=== PATIENT | male | born 1960 | race Caucasian/White ===

== ENCOUNTER 2017-11-26 12:13 | Emergency (ER) | payer OTHER ==
[2017-11-26] MEDS: NS 1,000 ML IV ×2 (13:12)
[2017-11-26] MEDS: MORPHINE 4 MG/ML 1ML VIAL IV (13:12)
[2017-11-26] MEDS: ONDANSETRON 4MG/2ML VIAL (J2405) IV ×2 (13:12)
[2017-11-26] MEDS: MORPHINE 4 MG/ML 1ML VIAL (J2270) IV (13:12)
[2017-11-26 13:43] LABS: BASO # 0.1 10^3/uL (0.0-0.2); BASO % 0.5 % (0.0-1.0); EOS # 0.1 10^3/uL (0.0-0.50); EOS % 0.9 % (0.0-3.0); HEMATOCRIT 45.4 % (42.0-52.0); HEMOGLOBIN 15.3 g/dl (14.0-18.0); IMMATURE GRANULOCYTE # 0.1 10^3/uL (0-0); IMMATURE GRANULOCYTE % 0.4 % (0-0); LYMPH # 1.7 10^3/uL (1.5-4.5); MEAN CORPUSCULAR HEMOGLOBIN 30.6 pg (27.0-33.0); MEAN CORPUSCULAR HGB CONC 33.7 g/dl (32.0-36.5); MEAN CORPUSCULAR VOLUME 90.8 fl (80.0-96.0); MONO # 1.1 10^3/uL (0.0-0.8); MONO % 7.8 % (0.0-5.0); NEUTROPHILS % 78.4 % (36.0-66.0); PLATELET COUNT, AUTOMATED 234 10^3/uL (150-450); RED CELL DISTRIBUTION WIDTH 13.2 % (11.5-14.5)
[2017-11-26 13:49] LABS: AMORPHOUS SEDIMENT RFX SMALL (NEGATIVE); KETONE, URINE AUTO RFX TRACE mg/dL (NEGATIVE); LEUKOCYTE ESTERASE UR AUTO RFX NEGATIVE (NEGATIVE); MUCUS, URINE RFX LARGE (NEGATIVE); NITRITE, URINE AUTO RFX NEGATIVE (NEGATIVE); RBC, URINE AUTO RFX 4 /HPF (0-3); SPECIFIC GRAVITY UR AUTO RFX 1.029 (1.002-1.035); SQUAM EPITHELIAL CELL UR AURFX 0 /HPF (0-6); WBC, URINE AUTO RFX 1 /HPF (0-3)
[2017-11-26 13:57] LABS: INR 1.02; PROTHROMBIN TIME 13.5 SECONDS (12.4-14.5)
[2017-11-26 13:58] LABS: PARTIAL THROMBOPLASTIN TIME 32.2 SECONDS (26.8-37.9)
[2017-11-26 14:07] LABS: ALBUMIN 3.8 GM/DL (3.2-5.2); ALBUMIN/GLOBULIN RATIO 0.97 (1.00-1.93); ALKALINE PHOSPHATASE 88 U/L (45-117); ALT/SGPT 24 U/L (12-78); AMYLASE 31 U/L (25-115); ANION GAP 7 MEQ/L (8-16); AST/SGOT 27 U/L (7-37); BILIRUBIN,DIRECT 0.2 MG/DL (0.0-0.2); BILIRUBIN,TOTAL 0.8 MG/DL (0.2-1.0); BLOOD UREA NITROGEN 35 MG/DL (7-18); CALCIUM LEVEL 8.9 MG/DL (8.5-10.1); CARBON DIOXIDE LEVEL 28 MEQ/L (21-32); CHLORIDE LEVEL 102 MEQ/L (98-107); CREATININE FOR GFR 1.17 MG/DL (0.70-1.30); GLOMERULAR FILTRATION RATE > 60.0 (>56); GLUCOSE, FASTING 105 MG/DL (70-100); LIPASE 98 U/L (73-393); POTASSIUM SERUM 3.9 MEQ/L (3.5-5.1); SODIUM LEVEL 137 MEQ/L (136-145); TOTAL PROTEIN 7.7 GM/DL (6.4-8.2)
[2017-11-26] MEDS: CIPROFLOXACIN 500 MG TAB PO ×2 (15:06)
[2017-11-26] MEDS: metroNIDAZOLE (FLAGYL) 500 MG TAB PO ×2 (15:06)
[2017-11-26] MEDS: NORCO, ANEXSIA 5/325MG TABLET (HYDROcodone/ACETAMINOPHEN) PO ×2 (15:07)
== END 2017-11-26 15:14 | disposition home or self-care (01) ==
LOC: M ED 12:13
DX: K80.50 Calculus of bile duct without cholangitis or cholecystitis without obstruction (principal); E86.0 Dehydration; R10.11 Right upper quadrant pain; R10.31 Right lower quadrant pain; I10 Essential (primary) hypertension; I25.10 Atherosclerotic heart disease of native coronary artery without angina pectoris; Z85.038 Personal history of other malignant neoplasm of large intestine; Z90.49 Acquired absence of other specified parts of digestive tract; Z95.5 Presence of coronary angioplasty implant and graft; Z79.899 Other long term (current) drug therapy
CPT/HCPCS: J2270; J2405

== ENCOUNTER 2017-12-23 07:46 | Day surgery (SDC) | payer OTHER ==
[2017-12-23] MEDS ORDERED: LR 1,000 ML IV (08:00)
[2017-12-23] MEDS ORDERED: ASPIRIN 81 MG CHEW TABLET PO (09:30)
[2017-12-23] MEDS ORDERED: CEFAZOLIN 100MG/ML SYRINGE 1GM(J0690 PER 500MG) As Ordered (09:36)
[2017-12-23] MEDS: CEFAZOLIN SOD 1 GM in APPROPRIATE DILUENT 1 EA IV (10:15)
[2017-12-23] MEDS ORDERED: KETOROLAC 60 MG/2 ML VIAL (J1885) As Ordered (10:34)
[2017-12-23] MEDS ORDERED: NEOSTIGMINE 10 MG/10 ML VIAL (J2710) As Ordered (10:34)
[2017-12-23] MEDS ORDERED: ONDANSETRON 4MG/2ML VIAL (J2405) As Ordered (10:34)
[2017-12-23] MEDS ORDERED: METOCLOPRAMIDE INJ 10MG/2ML VIAL (J2765) As Ordered (10:34)
[2017-12-23] MEDS ORDERED: MIDAZOLAM INJ 2 MG/2 ML VIAL (J2250) As Ordered (10:34)
[2017-12-23] MEDS ORDERED: PROPOFOL 200 MG/20 ML VIAL As Ordered (10:34)
[2017-12-23] MEDS ORDERED: LIDOCAINE 2% INJ 100 MG/5 ML SDV (FOR ANES.) As Ordered (10:34)
[2017-12-23] MEDS ORDERED: ROCURONIUM BROMIDE 50 MG/5 ML VIAL As Ordered ×2 (10:34→10:35)
[2017-12-23] MEDS ORDERED: fentaNYL 250 MCG/5 ML INJECTION (J3010) As Ordered (10:34)
[2017-12-23] MEDS ORDERED: GLYCOPYRROLATE INJ 0.2 MG/ML 2 ML VIAL As Ordered (10:34)
[2017-12-23] MEDS: LIDOCAINE W/EPINEPHRINE 1% 20ML VIAL As Ordered (10:49)
[2017-12-23] MEDS: BUPIVACAINE HCL 0.5% 10 ML VIAL As Ordered (10:50)
[2017-12-23] MEDS ORDERED: ePHEDrine INJ 50 MG/ML VIAL As Ordered (11:02)
[2017-12-23] MEDS ORDERED: fentaNYL 100 MCG/2 ML INJECTION (J3010) As Ordered ×2 (12:04→13:06)
[2017-12-23] MEDS ORDERED: DESFLURANE 240 ML INHALANT As Ordered (12:22)
[2017-12-23] MEDS: fentaNYL 100 MCG/2 ML INJECTION (J3010) IV ×4 (13:16→13:34)
[2017-12-23] MEDS ORDERED: MORPHINE 4 MG/ML 1ML VIAL (J2270) IV (13:30)
[2017-12-23] MEDS ORDERED: ONDANSETRON 4MG/2ML VIAL (J2405) IV (13:30)
[2017-12-23] MEDS ORDERED: NORCO, ANEXSIA 5/325MG TABLET (HYDROcodone/ACETAMINOPHEN) PO (13:30)
[2017-12-23] MEDS ORDERED: PERCOCET 5MG/325MG TAB As Ordered (13:38)
[2017-12-23] MEDS: PERCOCET 5MG/325MG TAB PO (13:44)
[2017-12-23] MEDS ORDERED: KETOROLAC 30 MG/ML VIAL (J1885) As Ordered (14:11)
[2017-12-23] MEDS ORDERED: LABETALOL HCL 100 MG/20 ML VIAL As Ordered (14:11)
[2017-12-23] MEDS: KETOROLAC 30 MG/ML VIAL (J1885) IV (14:19)
[2017-12-23] MEDS: LABETALOL HCL 100 MG/20 ML VIAL IV ×5 (14:20→14:42)
[2017-12-24] MEDS ORDERED: LR 1,000 ML IV (13:30)
[2017-12-24] MEDS ORDERED: ONDANSETRON 4MG/2ML VIAL (J2405) IV (13:30)
== END 2017-12-23 16:08 | disposition home or self-care (01) ==
LOC: M SDC 07:46
DX: K80.00 Calculus of gallbladder with acute cholecystitis without obstruction (principal); K66.0 Peritoneal adhesions (postprocedural) (postinfection); I11.9 Hypertensive heart disease without heart failure; I25.10 Atherosclerotic heart disease of native coronary artery without angina pectoris; K21.9 Gastro-esophageal reflux disease without esophagitis; I42.9 Cardiomyopathy, unspecified; E78.00 Pure hypercholesterolemia, unspecified; Z85.038 Personal history of other malignant neoplasm of large intestine; Z95.5 Presence of coronary angioplasty implant and graft; Z87.891 Personal history of nicotine dependence; Z79.899 Other long term (current) drug therapy; Z79.82 Long term (current) use of aspirin; Z79.02 Long term (current) use of antithrombotics/antiplatelets
CPT/HCPCS: 47562

== ENCOUNTER → 2018-06-03 | Outpatient (REF) | payer OTHER | LOC: M LAB REF 16:49 | DX: H66.3X1 Other chronic suppurative otitis media, right ear (principal) ==

== ENCOUNTER → 2022-04-02 | Outpatient (CLI) | payer OTHER ==
[~2022-04-02] MED LIST: ATOR40TA75 PO; CARV25TA PO; CIPR-249 PO; ECOT81TA5 PO; FLAG500T PO; HYDR-3715 PO; LISI10TA22 PO; PLAV1TAB2 PO; ZOFR4TAB14 PO
== END ==
LOC: M RAD 14:50
PROVIDERS: ATTEND Family Medicine
DX: I70.213 Atherosclerosis of native arteries of extremities with intermittent claudication, bilateral legs (principal)

== ENCOUNTER 2023-06-06 06:45 | Day surgery (SDC) | payer OTHER ==
[~2023-06-06] VITALS: Ht 172.7 cm; Wt 99.6 kg
[~2023-06-06 06:45] MED LIST changes: +CLOP75TA99 PO; +NS 1,000 ML IV ONE; +ONDA-83 PO; -PLAV1TAB2 PO
[2023-06-06] MEDS ORDERED: propofoL 200 MG/20 ML VIAL As Ordered ONE ×2 (07:05→08:30)
[2023-06-06 09:00] VITALS: BP 139/79; TEMP 97.6; O2SAT 97
== END 2023-06-06 10:23 | disposition home or self-care (01) ==
LOC: M OPP 06:45
PROVIDERS: ATTEND Internal Medicine Gastroenterology
DX: Z12.11 Encounter for screening for malignant neoplasm of colon (principal); Z85.038 Personal history of other malignant neoplasm of large intestine; D12.6 Benign neoplasm of colon, unspecified; K57.30 Diverticulosis of large intestine without perforation or abscess without bleeding; K64.4 Residual hemorrhoidal skin tags; K64.8 Other hemorrhoids; Z98.0 Intestinal bypass and anastomosis status; Z79.02 Long term (current) use of antithrombotics/antiplatelets; Z79.82 Long term (current) use of aspirin; Z79.891 Long term (current) use of opiate analgesic; Z79.899 Other long term (current) drug therapy